=== PATIENT | male | born 1945 | race Caucasian/White ===

== ENCOUNTER 2016-06-20 16:38 | Emergency (ER) | payer MEDICARE ==
[~2016-06-20] VITALS: Ht 188 cm; Wt 115.0 kg
[~2016-06-20 16:38] MED LIST: AMLO5TAB22 PO; CARV12.5 PO; CHOL50006 PO; GABA300C3 PO; HUMALOG SQ; PRAV40TA PO; PROT40TA PO; WARF5TAB PO; [UNRECOGNIZED DRUG - CODE] IP; [UNRECOGNIZED DRUG - CODE] PO
[2016-06-20 16:41] VITALS: BP 134/84; PULSE 98; RESP 16; TEMP 98.2; O2SAT 98
--- NOTE | 2016-06-20 17:14 | PD ---
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 They're unsure of how long it was disconnected. They think it may have been no more than 2 hours. They're told by the PD nurse to come to [place] for evaluation. There are no other complaints time my examination. PFSH Past Medical History Arthritis: Yes Autoimmune Disease: No Heart Rhythm Problems: Yes (AFIB ) Cancer: No Cardiovascular Problems: Yes High Cholesterol: Yes Diabetes: Yes (INSULIN PUMP ) Dialysis: Yes Diminished Hearing: No Endocrine: No GERD: Yes Genitourinary: Yes Hypertension: Yes Immune Disorder: No Musculoskeletal: Yes Neurologic: No Psychiatric: No Reproductive: No Respiratory: No Immunizations Current: No Renal Failure: Yes Thyroid Disease: No Past Surgical History Abdominal Surgery: Yes (? CYST REMOVAL) Body Medical Devices: L KNEE SCREWS R ANKLE PLATE Insulin Pump: Yes Other Surgery: Yes (INSULIN PUMP IMPLANT) Social History Alcohol Use: No Tobacco Use: No Substance Use: No Allergies-Medications (Allergen,Severity, Reaction): Coded Allergies: No Known Allergies (Verified , 06/20/16) Reported Meds & Prescriptions Reported Meds & Active Scripts Active Reported Dialyvite 800 (B-Complex W/ C & Folic Acid) 1 Tab 1 Tab PO DAILY Feosol (Ferrous Sulfate) 65 Mg Tab 65 Mg PO DAILY Wellbutrin Xl 24 HR (Bupropion HCl) 150 Mg Tab 150 Mg PO DAILY Gabapentin 300 Mg Cap 300 Mg PO TID Pantoprazole (Pantoprazole Sodium) 40 Mg Tab 40 Mg PO DAILY Glucagen Hypokit Inj Kit (Glucagon (Rdna) Inj Kit) 1 Mg Kit 1 Mg IM ONCE PRN Coumadin (Warfarin) 5 Mg Tab 2.5 Mg PO SUWE Take 1/2 tablet (2.5mg) daily on Friday and Friday Coumadin (Warfarin) 5 Mg Tab 5 Mg PO MOTUTHFRSA Take 1 tablet (5mg) daily on Friday,Friday,,Friday and Friday Lasix (Furosemide) 80 Mg Tab 80 Mg PO DAILY Ambien (Zolpidem Tartrate) 10 Mg Tab 10 Mg PO HS PRN Amlodipine (Amlodipine Besylate) 5 Mg Tab 5 Mg PO DAILY Pravachol (Pravastatin) 40 Mg Tab 40 Mg PO DAILY Coreg (Carvedilol) 12.5 Mg Tab 12.5 Mg PO BID Humalog Inj (Insulin Human Lispro) 1,000 Unit/10 Ml Vial SQ ACHS As per Sliding Scale Review of Systems Except as stated in HPI: all other systems reviewed are Neg General / Constitutional: No: Fever, Chills Gastrointestinal: Positive: Other (catheter came apart. Now placed back together.), No: Nausea, Vomiting, Abdominal Pain Physical Exam Narrative GENERAL: Well-nourished, well-developed patient. SKIN: Focused skin assessment warm/dry. HEAD: Normocephalic/atraumatic. EYES: No scleral icterus. No injection or drainage. NECK: Supple, trachea midline. CARDIOVASCULAR: Regular rate and rhythm without murmurs, gallops, or rubs. RESPIRATORY: Breath sounds equal bilaterally. No accessory muscle use. GASTROINTESTINAL: Abdomen soft, non-tender, nondistended. On examination the patient's peritoneal dialysis catheter site, there appears in be no external drainage. It is clamped off. The connector is reconnected. MUSCULOSKELETAL: No cyanosis, or edema. NEUROLOGICAL: Awake and alert. Cranial nerves II through XII intact. Motor grossly within normal limits. Five out of 5 muscle strength in all muscle groups. Normal speech. Data Data Last Documented VS Vital Signs Date Time Temp Pulse Resp B/P Pulse Ox O2 Delivery O2 Flow Rate FiO2 06/20/16 18:18 Room Air 06/20/16 18:14 06/20/16 16:41 98.2 98 16 98 Orders ^ Other Nursing Orders (06/20/16 17:38) Vancomycin Inj (Vancomycin Inj) (06/20/16 18:15) Ceftazidime Inj (Fortaz Inj) (06/20/16 18:15) MDM Medical Decision Making Medical Screen Exam Complete: Yes Emergency Medical Condition: Yes Differential Diagnosis Peritoneal dialysis catheter malfunction Narrative Course 70-year-old male with a history of peritoneal dialysis secondary to renal failure, presents here after his catheter came apart. He was reconnected by the patient and his . They called the peritoneal dialysis nurse who recommended they come to the dialysis Center however there was no replacement connector at that site. They present today here at the request of Dr. Harris and the peritoneal nurse. I spoke with Dr. Harris and he has informed me that he has been in contact with the peritoneal dialysis nurse who knew the patient was coming in. He states they are mixing Fortaz with vancomycin in the dialysate. They will be here to replace the connector and infused the dialysate. They have place the antibiotic and the dialysate. They've given instructions keep it there for 5 hours and then drain it. The patient and his understand the procedure. Diagnosis Primary Impression: peritoneal dialysis catheter malfunction. Additional Instructions: Drain dialysate as peritoneal dialysis nurse Disposition: 01 DISCHARGE HOME Condition: Stable Frank Denton MD Jun 20, 2016 17:14
[2016-06-20] MEDS ORDERED: DIAL800T3 PO (17:47)
[2016-06-20] MEDS ORDERED: CARV12.5 PO (17:47)
[2016-06-20] MEDS ORDERED: PANT40TA3 PO (17:47)
[2016-06-20] MEDS ORDERED: HUMALOG SQ (17:47)
[2016-06-20] MEDS ORDERED: FURO1TAB61 PO (17:47)
[2016-06-20] MEDS ORDERED: PRAV40TA PO (17:47)
[2016-06-20] MEDS ORDERED: AMBI10TA PO (17:47)
[2016-06-20] MEDS ORDERED: AMLO5TAB2 PO (17:47)
[2016-06-20] MEDS ORDERED: FERR65TA PO (17:47)
[2016-06-20] MEDS ORDERED: GABA300C5 PO (17:47)
[2016-06-20] MEDS ORDERED: COUM5TAB PO ×2 (17:47)
[2016-06-20] MEDS ORDERED: BUPR150XL PO (17:47)
[2016-06-20] MEDS ORDERED: GLUCINJ IM (17:47)
[2016-06-20] MEDS ORDERED: VANCOMYCIN HCL 1000 MG VIAL I-PERITON ONE (18:15)
[2016-06-20 18:55] VITALS: BP 132/75
== END 2016-06-21 00:33 | disposition home or self-care (01) ==
LOC: NEPC 16:38
DX: T82.898A Other specified complication of vascular prosthetic devices, implants and grafts, initial encounter (principal); N18.9 Chronic kidney disease, unspecified; E11.9 Type 2 diabetes mellitus without complications; I12.9 Hypertensive chronic kidney disease with stage 1 through stage 4 chronic kidney disease, or unspecified chronic kidney disease; I48.91 Unspecified atrial fibrillation; E78.00 Pure hypercholesterolemia, unspecified
CPT/HCPCS: 99283; G0257; J0713; J3370; 90945